=== PATIENT | male | born 1960 | race Caucasian/White ===

== ENCOUNTER 2017-04-14 06:26 | Day surgery (SDC) | payer BC, OTHER ==
[2017-04-14] MEDS ORDERED: Lactated Ringers 1,000 ML IV SCH (07:00)
[2017-04-14] MEDS ORDERED: Midazolam 1 MG/ML 2 ML SDV ONE (07:33)
[2017-04-14] MEDS ORDERED: fentaNYL 100 MCG/2 ML SDV ONE (07:33)
[2017-04-14] MEDS ORDERED: Propofol 200 MG/20 ML SDV ONE (07:33)
[2017-04-14 08:55] VITALS: BP 131/91
--- NOTE | 2017-04-15 09:19 | OR ---
DATE OF PROCEDURE: 04/14/2017 PREOPERATIVE DIAGNOSIS: History of tubular adenomas. POSTOPERATIVE DIAGNOSES: Diverticulosis and history of tubular adenomas. PROCEDURE: Colonoscopy to the cecum. SURGEON: Ludin Mcbride MD. ANESTHESIA: IV anesthesia with monitored anesthesia care. INDICATION: This 57-year-old white male is referred for a colonoscopy because of a history of tubular adenomas. He says his last colonoscopic exam was done about three years ago. I counseled him for the procedure including risks and alternatives, and he gave his informed consent to proceed. DESCRIPTION OF PROCEDURE: The patient was placed in the left lateral decubitus position. IV anesthesia was administered by the Anesthesia Service. Time-out was held. A rectal exam was performed, which was unremarkable. The flexible video Olympus colonoscope was introduced through his anus, up his rectum, and out his colon all the way to the cecum. En route, we saw both right and left-sided diverticula. There was no bleeding or inflammation associated with any of them. Once the cecum was reached, the scope was slowly withdrawn examining the mucosa throughout. No additional mucosal abnormalities were noted. No neoplastic lesions were seen. The scope was retroflexed in the rectum with the distal rectum appearing unremarkable. The scope was straightened and removed. He tolerated the procedure well. Ludin Mcbride MD /[id number] MTDD
== END 2017-04-14 09:03 | disposition home or self-care (01) ==
LOC: JP.SDS 06:26
PROVIDERS: ATTEND Surgery
DX: Z12.11 Encounter for screening for malignant neoplasm of colon (principal); K57.30 Diverticulosis of large intestine without perforation or abscess without bleeding; I10 Essential (primary) hypertension; E66.9 Obesity, unspecified; Z85.038 Personal history of other malignant neoplasm of large intestine
CPT/HCPCS: 45378; J2250; J2704; J3010; J7120